=== PATIENT | male | born 1950 | race Caucasian/White ===

== ENCOUNTER 2023-10-30 05:45 | Day surgery (SDC) | payer MEDICARE ==
[2023-10-25 10:30] VITALS: BP 139/82
[~2023-10-30] VITALS: Ht 167.6 cm; Wt 86.8 kg
[~2023-10-30 05:45] MED LIST: COREG3.125 MG PO; CRESTOR10 MG PO; FLOMAX0.4 MG PO; HYDROCHLOROTHIA25 MG PO; OMEGA 3 1,0001 EACH PO; [UNRECOGNIZED DRUG - OTHER] PO
[2023-10-30 06:08] VITALS: BP 124/76
--- NOTE | 2023-10-30 07:31 | NUR ---
ROUNDS. DR IN WITH PT. DID NOT DISTURB. PROVIDED SILENT PRAYER.
--- NOTE | 2023-10-30 10:38 | NUR ---
10/30/23 1038 Sheets,Thalia 0958 PT ARRIVED TO PACU ON 6L VIA MASK, ORAL AIRWAY IN PLACE AND RESP EVEN AND UNLABORED. VSS. CBI RED/PINK/CLEAR AND LEFT OPEN PER MD REQUEST. 1003 PT WAKES TO TACTILE STIMULI AND ORAL AIRWAY REMOVED. PT REORIENTED TO PACU AND DENIES PAIN AND NAUSEA. PT EASILY FALLS BACK TO SLEEP. 1015 PT MOANING WITH HIS EYES CLOSED, PT WAKES AND O2 REMOVED. PT CONTINUES TO DENY PAIN AND NAUSEA. CBI CONTINES TO RANGE FROM RED TO CLEAR AND RN CONTINUES TO MONITOR. 1030 PT WAKES OFF AND ON. PLAN OF CARE DISCUSSED, CBI EDUCATION GIVEN. PT EASILY FALLS BACK TO SLEEP AND O2 SAT LOW 90S.
--- NOTE | 2023-10-30 11:17 | NUR ---
PATIENT ARRIVED TO MED SURG VIA BED. CBI IS WIDE OPEN, URINE IS LIGHT PINK. VITALS ARE STABLE. PATIENT IS ON 2L OF O2 (NOT CHRONIC) TO KEEP SATS 98% (DELROY) IS IN ROOM.
--- NOTE | 2023-10-30 11:31 | NUR ---
CBI RATE LOWERED. URINE IS WATERMELON PINK. AT BEDSIDE. ICE WATER PROVIDED.
[2023-10-30 12:14] VITALS: BP 133/79
--- NOTE | 2023-10-30 12:38 | NUR ---
PATIENT WITH LR INFUSING AT 74 ML/HR. PATIENT STATES PAIN IS 3/10 BUT NOT REQUESTING PAIN MEDICATION AT THIS TIME. PATIENT ON 2L NASAL CANNULA WHICH IS NOT BASELINE. LUNG SOUNDS ARE CLEAR BUT DIMINISHED IN THE BASES BILATERALLY. CPOX IS AT THE BEDSDIE. PATIENT WITH NORMAL S1 AND S2 UPON AUSCULTATION. PATIENT WITH CATHETER IN PLACE AND DRAINING WATERMELON COLORED URINE. PATIENT STATES SOME DISCOMFORT AT THE CATHETER SITE. PATIENT BOWEL TONES ARE ACTIVE IN ALL FOUR QUADRANTS AND PATIENT IS EATING LUNCH AT THIS TIME. SECOND SET OF POST OP VITALS ARE DOCUMENTED IN THE CHART. PATIENT STATED NO FURTHER NEEDS AT THIS TIME. CALL LIGHT AND PERSONAL BELONGINGS ARE WITHIN REACH
--- NOTE | 2023-10-30 12:58 | NUR ---
ROUNDS. PT AND SUPERINTENDENT GREENS EXHIBIT STRONG RELATIONAL SUPPORT; SITUATIONALLY APPROPRIATE RESPONSES; STATE NO NEEDS AT THIS TIME. PROVIDED HOSPITALITY; PROVIDED PRAYER. PT AND COMPANTION EXPRESSED GRATITUDE.
[2023-10-30 13:07] VITALS: BP 125/71
[2023-10-30 15:01] VITALS: BP 127/75
--- NOTE | 2023-10-30 15:23 | NUR ---
PATIENT PAIN IS 2/10 AFTER GETTING THE PRN DILAUDID THROUGH THE IV. LR IS RUNNING AT 75 ML/HR. PATIENT ON 2L NASAL CANNULA WITH THE CPOX AT THE BEDSIDE. PATIENT IS SITTING IN THE RECLINER. PATIENT STATED NO FURTHER NEEDS AT THIS TIME. CALL LIGHT AND PERSONAL BELONGINGS ARE WTIHIN REACH.
--- NOTE | 2023-10-30 16:59 | OR ---
[facility] [address], [place] [address] Signed DATE OF OPERATION: 10/30/2023 SURGEON: Kathryn Reynolds MD PREOPERATIVE DIAGNOSES: 1. Severe bilobar benign prostatic hypertrophy with active bladder outlet obstruction. 2. Active lower urinary tract symptoms. POSTOPERATIVE DIAGNOSES: 1. Severe bilobar benign prostatic hypertrophy with active bladder outlet obstruction. 2. Active lower urinary tract symptoms. NAMES OF PROCEDURES: 1. Diagnostic cystoscopy. 2. Transurethral resection of the prostate. 3. Dilation of the fossa navicularis using [place] sounds, from 18-[place] to 28-[place]. ANESTHESIA: Spinal. ESTIMATED BLOOD LOSS: 50 mL. COMPLICATIONS: None. SPECIMENS: Prostate chips sent to pathology for evaluation. DRAINS: A 22-[place] three-way Galindo catheter, connected to continuous bladder irrigation. INDICATIONS FOR PROCEDURE: Mr. Joshi is a very pleasant 73-year-old gentleman, who recently presented to me with active lower urinary tract symptoms. He had been experiencing a weak force of stream along with nocturia and frequency symptoms. He subsequently underwent diagnostic cystoscopy, which revealed severe bilobar benign prostatic hyperplasia with associated evidence of bladder outlet obstruction in the form of bladder wall trabeculation. Of note, he did not have any significant median lobe present. After discussion of the risks and benefits of the procedure including the risk of hemorrhage and stress Electronically Signed By: KATHRYN REYNOLDS MD 10/30/23 1659 PATIENT NAME: ELLA JOSHI OPERATIVE REPORT DATE OF : 48 REPORT #: [id number] PHYSICIAN: KATHRYN REYNOLDS MD PCP: MARÍA BARTON MD REPORT IS CONFIDENTIAL AND NOT TO BE RELEASED WITHOUT AUTHORIZATION [facility] [address], [place] [address] Signed incontinence, the patient has agreed to proceed. OPERATIVE FINDINGS: 1. Digital rectal examination reveals a 50 g prostate that is asymmetric with the left lobe larger than the right lobe, but is otherwise soft and smooth with no focal nodules. There is a significant amount of external hemorrhoids noted on rectal exam. 2. Diagnostic cystoscopy reveals no evidence of any suspicious masses, lesions, or stones. Bilateral ureteral orifices are noted in their normal anatomic location and are not near the bladder neck. There is diffuse grade 2-3 bladder wall trabeculation present. 3. The patient's very large bilobar gland was resected down to the level of the verumontanum. Only the very large and protuberant left and lateral lobes of the prostate were resected. There was no resection performed at the level of the bladder neck, as I did not see that it was necessary. 4. At the end at the end of the procedure, a 22-[place] three-way Galindo catheter was inserted into the patient's bladder and connected to continuous bladder irrigation. DESCRIPTION OF PROCEDURE: After informed consent was obtained, the patient was taken back to the operating room. He was transferred from the [facility] to the operating room table, where spinal anesthesia was induced. He was then placed in the dorsal lithotomy position and his genitalia were prepped and draped in standard sterile fashion. Using a 30-degree lens on a 22.5-[place] introducer, rigid cystoscope was inserted through his urethra and into his bladder under direct visualization. Diagnostic cystoscopy was then performed. Please see above findings. I then withdrew the rigid cystoscope and dilated the patient's fossa navicularis from 18-[place] to 28-[place] using Ruben sounds. I then instilled 60 mL of lubricant into the patient's urethra to help prevent friction during the resection. I then passed a 26-[place] sheath with a visual obturator through the patient's prostatic urethra into the bladder. I switched this out for a resectoscope with a 24-[place] bipolar loop. I again noted the location of the bilateral ureteral orifices before starting my resection. I then resected the left lobe of the prostate 1st down to the level of verumontanum. This was followed by the right lobe of the prostate. Again, both lobes were extremely protuberant and were actively obstructing the prostatic urethra. Overall, the left lobe was a good deal larger than the right lobe. I had to irrigate the prostate chips from the patient's bladder using a Kim syringe multiple times throughout the procedure. Adequate hemostasis was achieved and maintained, 1st via the bipolar loop and then this was switched out for the bipolar button towards the end of procedure. All of the prostate chips were irrigated from the patient's bladder by the end of procedure and I then used the bipolar button again to gain control of any residual bleeding in the area of the resection. Once I was satisfied that both lobes were completely resected, I removed the resectoscope, leaving the sheath behind. I passed a Sensor wire through the sheath and into the patient's bladder. The sheath was Electronically Signed By: KATHRYN REYNOLDS MD 10/30/23 6208 PATIENT NAME: ELLA JOSHI OPERATIVE REPORT DATE OF : 48 REPORT #: [id number] PHYSICIAN: KATHRYN REYNOLDS MD PCP: MARÍA BARTON MD REPORT IS CONFIDENTIAL AND NOT TO BE RELEASED WITHOUT AUTHORIZATION [address] [address] Signed then removed fully intact. Over the 0.035 Sensor wire, I passed a 22-[place] three-way Galindo catheter into the patient's bladder without difficulty. This Sensor wire was removed and 30 mL was instilled into the patient's Galindo catheter. I then manually irrigated the patient's bladder to ensure adequate placement within the bladder proper. The Galidno catheter irrigated quite nicely. He was then connected to continuous bladder irrigation. A digital rectal examination was then performed. Please see above findings. The procedure was then terminated. The patient tolerated the procedure well without any complication. He will now be transferred to the postanesthesia care unit in stable condition. DISPOSITION: I discussed the details of today's procedure with the patient's and answered all of her questions. He apparently has an issue with chronic constipation, so he will be given a bowel regimen while he is here in the hospital and I made it very clear to his to make sure he is on one when he goes home as I do not want him performing a lot of exertional activity including straining to poop for the next six weeks. He will be scheduled to return to clinic in three days to undergo a voiding trial and he will see me in approximately six weeks to undergo his 1st postoperative visit with a PVR. MD NIMO Benavides/HANS /[id number] Copies: ~ Electronically Signed By: KATHRYN REYNOLDS MD 10/30/23 1659 PATIENT NAME: ELLA JOSHI OPERATIVE REPORT DATE OF : 48 REPORT #: [id number] PHYSICIAN: KATHRYN REYNOLDS MD PCP: MARÍA BARTON MD REPORT IS CONFIDENTIAL AND NOT TO BE RELEASED WITHOUT AUTHORIZATION
[2023-10-30 18:43] VITALS: BP 143/85
[2023-10-30 19:30] VITALS: BP 147/80; BP 1473/80
[2023-10-31 01:36] VITALS: BP 122/67
--- NOTE | 2023-10-31 02:57 | NUR ---
BLADDER IRRIGATION INFUSING, PT HAS HAD A COUPLE CLOTS, COLOR IS PINK AND THEN HAS SOME RED, CONTINUING UNTIL PINK TO CLEAR PER ORDERS.
[2023-10-31 05:46] VITALS: BP 129/76
--- NOTE | 2023-10-31 07:28 | NUR ---
report received from lazaro rn.
[2023-10-31] MEDS ORDERED: LEVOFLOXACIN500 MG PO (08:03)
[2023-10-31] MEDS ORDERED: OXYCODONE HCL5 MG (08:03)
--- NOTE | 2023-10-31 08:46 | NUR ---
PT SITTING UP IN BED EATING BREAKFAST, DENIES PAIN, HAS NO REQUESTS AT THIS TIME.
[2023-10-31 09:34] VITALS: BP 132/63
--- NOTE | 2023-10-31 10:10 | NUR ---
CALL TO DR. REYNOLDS TO LET HER KNOW THAT CBI WAS TURNED OFF AT 0850. PLAN TO LEAVE CBI OFF UNTIL 1PM TO WATCH FOR BLEEDING. PLAN TO CALL DR. REYNOLDS AT 1PM.
--- NOTE | 2023-10-31 10:37 | NUR ---
DISCUSSED CATHETER CARE AND EMPTYING WITH PT AND . DEMONSTRATED HOW TO EMPTY CATHETER AND HAD DO RETURN DEMONSTRATION. WILL REVISIT AGAIN LATER TO REINFORCE TEACHING BEFORE PT IS DISCHARGED.
--- NOTE | 2023-10-31 10:59 | NUR ---
ROUNDS. PT EXPRESSED HOPEFUL ANTICIPATION OF PENDING DISCHARGE; CONSENTED TO PRAYER. PROVIDED SUPPORTIVE PRESENCE; PROVIDED HOSPITALITY; PROVIDED PRAYER. PT EXPRESSED GRATITUDE AND AWARENESS OF DIVINE.
--- NOTE | 2023-10-31 12:15 | NUR ---
PT DENIES PAIN. URINE IS PALE PINK WITH NO CLOTS. AT BEDSIDE.
--- NOTE | 2023-10-31 12:27 | NUR ---
PT'S EMPTIED CATHETER. NO QUESTIONS AT THIS TIME. TEACHING REINFORCED.
--- NOTE | 2023-10-31 13:00 | NUR ---
DR REYNOLDS CALLED AND UPDATED ON PT CONDITION. DR MONET WITH PT BEING DISCHARGED NOW.
--- NOTE | 2023-10-31 13:10 | NUR ---
WRITTEN AND VERBAL DISCHARGE INSTRUCTIONS GIVEN TO AND PATIENT. BOTH STATED UNDERSTANDING.
--- NOTE | 2023-10-31 13:11 | NUR ---
BLADDER IRRIGON PORT PLUGGED FOR DISCHARGE.
[2023-10-31 13:27] VITALS: BP 140/75
--- NOTE | 2023-10-31 13:30 | NUR ---
PT DISCHARGED PER WC WITH TO HOME.
--- NOTE | 2023-11-07 12:05 | PATH ---
[facility] [address] [place], [place] [address] Signed SPECIMEN(S): A PROSTATE CHIPS SPECIMEN SOURCE: A. PROSTATE CHIPS CLINICAL HISTORY: BPH with LUTS FINAL PATHOLOGIC DIAGNOSIS: Prostate chips, TUR: - Benign prostatic glandular tissue with stromal and glandular hyperplasia. - Extensive stromal and glandular acute and chronic inflammation. - Urothelium with reactive features. JVR:clv MICROSCOPIC EXAMINATION: Histologic sections of all submitted blocks are examined by light microscopy. These findings, together with the gross examination, support the pathologic diagnosis. Immunohistochemical staining, with appropriately reactive controls, for p63, high molecular weight cytokeratin, and AMACR (TriCAP--prostate cocktail multiplex stain) was performed on block A1 There is at least partial basal marker (p63, HMWK) expression and only zammvmes-ym-bydx AMACR expression in the focus/foci of interest. This constellation of findings is indicative of a benign process, such as partial atrophy, and argues against the possibility of prostatic adenocarcinoma. JVR:clv GROSS DESCRIPTION: The specimen, labeled and designated "Мария Joshi, " and designated on the requisition "prostate chips," is received in formalin is a 29 g, 8.5 x 8.5 x 2.6 cm aggregate of pink-duron to medina rubbery soft tissue. Approximately 60% of the specimen is submitted in (A1-A12). FB (under the direct supervision of a pathologist) The Gross Description was prepared using a voice recognition system. The report was reviewed for accuracy; however, sound-alike word errors, addition and/or deletions may occur. If there is any question about this report, please contact Client Services. ADDITIONAL NOTES: PATIENT NAME: ELLA JOSHI PATHOLOGY DATE OF : 48 REPORT #: [id number] PHYSICIAN: RAMEZ BROCK PCP: MARÍA BARTON MD REPORT IS CONFIDENTIAL AND NOT TO BE RELEASED WITHOUT AUTHORIZATION [facility] [address] [place], [place] [address] Signed Immunohistochemical and/or in situ hybridization studies were performed on this case with the appropriate positive controls that react as expected. This test was developed and its performance characteristics determined by [facility]. It has not been cleared or approved by the U.S. Food and Drug Administration. The FDA has determined that such clearance or approval is not necessary. This test is used for clinical purposes. It should not be regarded as investigational or for research. [facility] is certified under the Clinical Laboratory Improvement Amendments of 1988 (CLIA) as qualified to perform high complexity clinical laboratory testing. PERFORMING LABORATORY: Technical component was performed by [facility], [address] [place] [id number] (CLIA# [id number]). Professional interpretation was performed by [facility], [address] [place] [id number] (CLIA#: [id number]). Diagnostician: Beto Richmond MD Pathologist Electronically Signed 11/07/2023 Copies: ~ PATIENT NAME: ELLA JOSHI PATHOLOGY DATE OF : 48 REPORT #: [id number] PHYSICIAN: RAMEZ BROCK PCP: MARÍA BARTON MD REPORT IS CONFIDENTIAL AND NOT TO BE RELEASED WITHOUT AUTHORIZATION
== END 2023-10-31 13:30 | disposition home or self-care (01) ==
LOC: DS 05:45 → MS 11:05 → DS 10-31 13:30
PROVIDERS: ATTEND Urology
PROC: 0VB08ZZ Excision of Prostate, Via Natural or Artificial Opening Endoscopic (ICD-10-PCS; principal; 2023-10-30 07:30)
DX: N40.1 Benign prostatic hyperplasia with lower urinary tract symptoms (principal); N13.8 Other obstructive and reflux uropathy
CPT/HCPCS: 00914; 88305; 88344; C1769; J0690; J0696; J1100; J1170; J1815; J2001; J2250; J2704; J3010; J7121